=== PATIENT | female | born 2000 | race Hispanic/Latino ===

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

== ENCOUNTER 2021-06-29 10:55 | Emergency (ER) | payer BC, OTHER ==
[2021-06-29] MEDS ORDERED: Bupivacaine 0.5% 10 ML VIAL ONE (12:59)
[2021-06-29] MEDS ORDERED: Bacitracin 1 PK ONE (13:17)
[2021-06-29] MEDS ORDERED: Boostrix 0.5 ML (Tdap) VIAL ONE (13:17)
[2021-06-29] MEDS ORDERED: Ibuprofen 200 MG TAB ONE (13:17)
== END 2021-06-29 13:33 | disposition home or self-care (01) ==
LOC: ERS 10:55
DX: S61.206A Unspecified open wound of right little finger without damage to nail, initial encounter (principal); W26.8XXA Contact with other sharp object(s), not elsewhere classified, initial encounter
CPT/HCPCS: 90471; 90715; J3490